=== PATIENT | male | born 1995 | race American Indian/Alaskan Native ===

== ENCOUNTER 2017-07-04 21:11 | Emergency (ER) | payer OTHER ==
[2017-07-04 22:29] VITALS: BP 122/66
[2017-07-04 23:26] LABS: Basophils # (Auto) 0.1 K/mm3 (0.0-0.1); Basophils % (Auto) 0.8 % (0.0-1.8); Eosinophils # (Auto) 0.3 K/mm3 (0.0-0.4); Eosinophils % (Auto) 3.7 % (0.0-4.3); Hematocrit 44.2 % (35.5-45.6); Lymphocytes # (Auto) 2.2 K/mm3 (1.2-5.4); Mean Corpuscular HGB Conc 34 % (32-34); Mean Corpuscular Hemoglobin 31 pg (28-32); Mean Corpuscular Volume 93 fl (84-94); Monocytes # (Auto) 0.6 K/mm3 (0.0-0.8); Monocytes % (Auto) 8.1 % (0.0-7.3); Platelet Count 252 K/mm3 (140-440); Red Blood Count 4.77 M/mm3 (3.65-5.03); Red Cell Distribution Width 14.1 % (13.2-15.2)
[2017-07-05 00:07] LABS: BUN/Creatinine Ratio 10; Blood Urea Nitrogen 12 mg/dL (9-20); Calcium 8.9 mg/dL (8.4-10.2); Hemolysis Index 21
[2017-07-05 02:14] LABS: Bilirubin,Urine NEG (Negative); Blood,Urine NEG (Negative); Color,Urine Yellow (Yellow); Mucus,Urine FEW /HPF; Protein,Urine <15 mg/dL mg/dL (Negative); Urobilinogen,Urine < 2.0 mg/dL (<2.0)
[2017-07-05 02:22] LABS: Amphetamine Screen,Urine PRESUMPTIVE NEGATIVE; Benzodiazepines Screen,Urine PRESUMPTIVE NEGATIVE; Methadone Screen,Urine PRESUMPTIVE NEGATIVE; Opiate Screen,Urine PRESUMPTIVE NEGATIVE
[2017-07-05 02:36] LABS: Cannabinoid Screen,Urine PRESUMPTIVE POSITIVE; Cocaine Screen,Urine PRESUMPTIVE POSITIVE
--- NOTE | 2017-07-05 03:34 | Emergency Department Report ---
ED Psych HPI - General Chief Complaint: Psych Stated Complaint: MEDICAL CLEARANCE Time Seen by Provider: 07/05/17 03:07 Source: patient Mode of arrival: Ambulatory - History of Present Illness Initial Comments: Patient was sent from [facility] for medical clearance for major depression. Patient has been having suicidal ideations without plan. He was complaining of a sore throat and occasional headache. Presently does not have any headache now MD Complaint: suicidal ideation, feels depressed -: Gradual Associated Psychiatric Symptoms: suicidal ideation, auditory hallucinations Improves With: none Worsens With: none Context: recent drug abuse - Related Data Allergies Allergy/AdvReac Type Severity Reaction Status Date / Time No Known Allergies Allergy Unverified 07/04/17 22:29 ED Review of Systems ROS: Stated complaint: MEDICAL CLEARANCE Other details as noted in HPI Comment: All other systems reviewed and negative ED Past Medical Hx - Past Medical History Hx Psychiatric Treatment: Yes (SI/HI,depression, OD'ed in 2012,major depression) Hx Asthma: Yes (bronchitis) Additional medical history: heart murmur - Social History Smoking Status: Current Every Day Smoker Substance Use Type: Alcohol, Cocaine, Heroin, Marijuana, Methamphetamines ED Physical Exam - General Limitations: No Limitations General appearance: alert, in no apparent distress - Head Head exam: Present: atraumatic, normocephalic - Eye Eye exam: Present: normal appearance - ENT ENT exam: Present: mucous membranes moist - Neck Neck exam: Present: normal inspection - Respiratory Respiratory exam: Present: normal lung sounds bilaterally. Absent: respiratory distress - Cardiovascular Cardiovascular Exam: Present: regular rate, normal rhythm. Absent: systolic murmur, diastolic murmur, rubs, gallop - GI/Abdominal GI/Abdominal exam: Present: soft, normal bowel sounds. Absent: tenderness - Rectal Rectal exam: Present: deferred - Extremities Exam Extremities exam: Present: normal inspection - Back Exam Back exam: Present: normal inspection - Neurological Exam Neurological exam: Present: alert, oriented X3 - Psychiatric Psychiatric exam: Present: normal affect, normal mood - Skin Skin exam: Present: warm, dry, intact, normal color. Absent: rash ED Course Vital Signs 07/04/17 07/05/17 22:20 01:15 Temperature 98.4 F Pulse Rate 55 L Respiratory 18 18 Rate Blood Pressure 122/66 O2 Sat by Pulse 99 99 Oximetry ED Medical Decision Making - Lab Data Result diagrams: 07/04/17 22:32 07/04/17 22:32 - Medical Decision Making Patient is medically cleared Critical care attestation.: If time is entered above; I have spent that time in minutes in the direct care of this critically ill patient, excluding procedure time. ED Disposition Clinical Impression: Medical clearance for psychiatric admission Disposition: DC/TX-65 PSY HOSP/PSY UNIT Is pt being admited?: No Does the pt Need Aspirin: No Condition: Stable Instructions: Depression (ED) Referrals: RENAN TOM MD [Primary Care Provider] - 3-5 Days Time of Disposition: 04:32 Print Language: KISWAHILI
== END 2017-07-05 08:33 ==
LOC: ED 21:11
DX: F32.9 Major depressive disorder, single episode, unspecified (principal); J02.9 Acute pharyngitis, unspecified; R51 Headache; J45.909 Unspecified asthma, uncomplicated; F17.200 Nicotine dependence, unspecified, uncomplicated; F14.10 Cocaine abuse, uncomplicated; F12.10 Cannabis abuse, uncomplicated; F15.10 Other stimulant abuse, uncomplicated; F11.10 Opioid abuse, uncomplicated; Z79.899 Other long term (current) drug therapy
CPT/HCPCS: 36415; 80048; 80307; 81001; 85025; 87116; 87430; 99285; G0480; 80320

== ENCOUNTER 2017-07-11 03:09 | Emergency (ER) | payer SELFPAY ==
[2017-07-11 04:55] LABS: Bilirubin,Urine NEG (Negative); Blood,Urine NEG (Negative); Color,Urine Yellow (Yellow); Mucus,Urine FEW /HPF; Protein,Urine <15 mg/dL mg/dL (Negative); Urobilinogen,Urine < 2.0 mg/dL (<2.0); WBC,Urine < 1.0 /HPF (0.0-6.0)
[2017-07-11 04:59] LABS: Basophils # (Auto) 0.1 K/mm3 (0.0-0.1); Eosinophils # (Auto) 0.1 K/mm3 (0.0-0.4); Hematocrit 42.3 % (35.5-45.6); Hemoglobin 14.8 gm/dl (11.8-15.2); Lymphocytes # (Auto) 2.2 K/mm3 (1.2-5.4); Mean Corpuscular HGB Conc 35 % (32-34); Mean Corpuscular Hemoglobin 32 pg (28-32); Mean Corpuscular Volume 92 fl (84-94); Monocytes # (Auto) 0.6 K/mm3 (0.0-0.8); Monocytes % (Auto) 5.4 % (0.0-7.3); Platelet Count 254 K/mm3 (140-440); Red Cell Distribution Width 14.5 % (13.2-15.2)
[2017-07-11 05:11] LABS: BUN/Creatinine Ratio 10; Blood Urea Nitrogen 9 mg/dL (9-20); Calcium 8.9 mg/dL (8.4-10.2); Hemolysis Index 33
[2017-07-11 05:16] LABS: Amphetamine Screen,Urine PRESUMPTIVE NEGATIVE; Benzodiazepines Screen,Urine PRESUMPTIVE NEGATIVE; Cannabinoid Screen,Urine PRESUMPTIVE NEGATIVE; Methadone Screen,Urine PRESUMPTIVE NEGATIVE; Opiate Screen,Urine PRESUMPTIVE NEGATIVE
[2017-07-11 05:29] LABS: Cocaine Screen,Urine PRESUMPTIVE POSITIVE
--- NOTE | 2017-07-11 12:00 | Emergency Department Report ---
ED Medical Clearance HPI - General Chief complaint: Psych Stated complaint: MEDICAL CLEARANCE Time Seen by Provider: 07/11/17 11:30 Source: patient Mode of arrival: Ambulatory - History of Present Illness Initial comments: 22-year-old male past medical history suicidal ideation, asthma, smoking presents with request for medical clearance. Patient states he missed his curfew at [facility] last night. Patient denies any fevers chills cough chest pain palpitations shortness of breath nausea vomiting. Denies suicidal or homicidal ideation. Is awake alert and oriented 3. Has no physical complaints. Is however requesting a refill on his albuterol inhaler. Patient states he does have a history of drug use for which she is being assisted at [facility]. he denies any other complaints. MD Complaint: medical clearance request Alledged Intoxication: No Compliant with Home Medications: No Treatments Prior to Arrival: none Home medications: Previous Rx's Medication Instructions Recorded Last Taken Type Albuterol Sulfate [Ventolin Hfa] 1 puff IH Q4H PRN #1 [email or web address] 07/11/17 Unknown Rx Allergies/Adverse reactions: Allergies Allergy/AdvReac Type Severity Reaction Status Date / Time No Known Allergies Allergy Unverified 07/04/17 22:29 ED Review of Systems ROS: Stated complaint: MEDICAL CLEARANCE Other details as noted in HPI Constitutional: denies: chills, fever Eyes: denies: eye pain, eye discharge, vision change ENT: denies: ear pain, throat pain Respiratory: denies: cough, shortness of breath, wheezing Cardiovascular: denies: chest pain, palpitations Endocrine: no symptoms reported Gastrointestinal: denies: abdominal pain, nausea, diarrhea Genitourinary: denies: urgency, dysuria Musculoskeletal: denies: back pain, joint swelling, arthralgia Skin: denies: rash, lesions Neurological: denies: headache, weakness, paresthesias Psychiatric: denies: anxiety, depression Hematological/Lymphatic: denies: easy bleeding, easy bruising ED Past Medical Hx - Past Medical History Hx Psychiatric Treatment: Yes (SI/HI,depression, OD'ed in 2012,major depression) Hx Asthma: Yes (bronchitis) Additional medical history: heart murmur - Surgical History Past Surgical History?: No - Social History Smoking Status: Current Every Day Smoker Substance Use Type: None - Medications Home Medications: Home Medications Medication Instructions Recorded Confirmed Last Taken Type Albuterol Sulfate [Ventolin Hfa] 1 puff IH Q4H PRN #1 [email or web address] 07/11/17 Unknown Rx ED Physical Exam - General Limitations: No Limitations General appearance: alert, in no apparent distress - Head Head exam: Present: atraumatic, normocephalic - Eye Eye exam: Present: normal appearance, PERRL, EOMI - ENT ENT exam: Present: mucous membranes moist - Neck Neck exam: Present: normal inspection - Respiratory Respiratory exam: Present: normal lung sounds bilaterally. Absent: respiratory distress - Cardiovascular Cardiovascular Exam: Present: regular rate, normal rhythm. Absent: systolic murmur, diastolic murmur, rubs, gallop - GI/Abdominal GI/Abdominal exam: Present: soft, normal bowel sounds - Rectal Rectal exam: Present: deferred - Extremities Exam Extremities exam: Present: normal inspection - Back Exam Back exam: Present: normal inspection - Neurological Exam Neurological exam: Present: alert, oriented X3 - Psychiatric Psychiatric exam: Present: normal affect, normal mood - Skin Skin exam: Present: warm, dry, intact, normal color. Absent: rash ED Course Vital Signs 07/11/17 04:15 Temperature 98.5 F Pulse Rate 67 Respiratory 16 Rate Blood Pressure 121/77 O2 Sat by Pulse 100 Oximetry ED Medical Decision Making - Lab Data Result diagrams: 07/11/17 04:45 07/11/17 04:45 - Medical Decision Making A/P: Medical clearance 1-patient has no overt medical problem at this time. Normal vital signs. Labs unremarkable 2-patient can return to his living facility today. States he is receiving therapy for substance abuse. 3-I verified with on-call behavioral health specialist Ms. Palomo that patients from this facility require medical clearance before returning if they missed their curfews. 4- albuterol refill ED Disposition Clinical Impression: Medication refill, Encounter for other administrative examinations Disposition: DC-01 TO HOME OR SELFCARE Is pt being admited?: No Does the pt Need Aspirin: No Condition: Stable Additional Instructions: Patient can return to his living facility today Prescriptions: Albuterol Sulfate [Ventolin Hfa] 1 puff IH Q4H PRN #1 [email or web address] PRN Reason: Wheezing Referrals: [facility] [Provider Group] - 3-5 Days Forms: Work/School Release Form(ED) Time of Disposition: 12:12
--- NOTE | 2017-07-11 12:11 | Emergency Department Report ---
Chief Complaint: Psych Stated Complaint: MEDICAL CLEARANCE Time Seen by Provider: 07/11/17 11:30 - HPI History of Present Illness: The patient's a 22-year-old male presents for evaluation of medical clearance. The patient states that he requires medical clearance for admission into [facility]. The patient denies fever, neck pain, chest pain, dyspnea, abdominal pain , back pain parasthesias, dyspnea, cough, hemoptysis, palpitations, dizziness, syncope, unilateral leg swelling, calf muscle pain, acute suicidal ideation or homicidal ideation, or acute hallucinations. - Exam Vital Signs: Vital Signs 07/11/17 04:15 Temperature 98.5 F Pulse Rate 67 Respiratory 16 Rate Blood Pressure 121/77 O2 Sat by Pulse 100 Oximetry MSE screening note: Focused history and physical exam performed. Due to findings the following was ordered: ED Medical Decision Making - Lab Data Result diagrams: 07/11/17 04:45 07/11/17 04:45 ED Disposition for MSE Condition: Stable Referrals: RENAN TOM MD [Primary Care Provider] - 3-5 Days
[2017-07-11 12:19] VITALS: BP 120/70
== END 2017-07-11 12:18 | disposition home or self-care (01) ==
LOC: ED 03:09
DX: Z02.89 Encounter for other administrative examinations (principal); F32.9 Major depressive disorder, single episode, unspecified; F17.200 Nicotine dependence, unspecified, uncomplicated; J45.909 Unspecified asthma, uncomplicated; Z79.899 Other long term (current) drug therapy
CPT/HCPCS: 36415; 80048; 80307; 81001; 85025; 99283; G0480; 80320

== ENCOUNTER 2017-07-21 09:08 | Emergency (ER) | payer SELFPAY ==
[2017-07-21 09:31] VITALS: BP 130/79
[2017-07-21 10:14] LABS: Basophils % (Auto) 0.5 % (0.0-1.8); Eosinophils % (Auto) 0.3 % (0.0-4.3); Hematocrit 41.4 % (35.5-45.6); Hemoglobin 14.6 gm/dl (11.8-15.2); Lymphocytes # (Auto) 1.3 K/mm3 (1.2-5.4); Lymphocytes % (Auto) 14.1 % (13.4-35.0); Mean Corpuscular HGB Conc 35 % (32-34); Mean Corpuscular Hemoglobin 32 pg (28-32); Mean Corpuscular Volume 92 fl (84-94); Monocytes % (Auto) 11.1 % (0.0-7.3); Platelet Count 211 K/mm3 (140-440)
[2017-07-21 10:33] LABS: BUN/Creatinine Ratio 10; Blood Urea Nitrogen 11 mg/dL (9-20); Calcium 9.5 mg/dL (8.4-10.2); Hemolysis Index 5
== END 2017-07-21 09:30 | disposition left against medical advice (07) ==
LOC: ED 09:08
DX: R10.9 Unspecified abdominal pain (principal); Z53.21 Procedure and treatment not carried out due to patient leaving prior to being seen by health care provider
CPT/HCPCS: 36415; 80048; 85025; G0480; 80320

== ENCOUNTER 2017-08-10 09:18 | Emergency (ER) | payer OTHER ==
[2017-08-10 10:05] VITALS: BP 119/65
[2017-08-10 11:40] LABS: Bilirubin,Urine NEG (Negative); Blood,Urine NEG (Negative); Color,Urine Straw (Yellow); Protein,Urine <15 mg/dL mg/dL (Negative); Urobilinogen,Urine < 2.0 mg/dL (<2.0)
[2017-08-10 11:46] LABS: Amphetamine Screen,Urine PRESUMPTIVE NEGATIVE; Benzodiazepines Screen,Urine PRESUMPTIVE NEGATIVE; Cannabinoid Screen,Urine PRESUMPTIVE NEGATIVE; Methadone Screen,Urine PRESUMPTIVE NEGATIVE; Opiate Screen,Urine PRESUMPTIVE NEGATIVE
[2017-08-10 11:49] LABS: RBC,Urine < 1.0 /HPF (0.0-6.0); WBC,Urine < 1.0 /HPF (0.0-6.0)
[2017-08-10 12:09] LABS: Basophils # (Auto) 0.1 K/mm3 (0.0-0.1); Basophils % (Auto) 0.7 % (0.0-1.8); Eosinophils # (Auto) 0.2 K/mm3 (0.0-0.4); Eosinophils % (Auto) 2.3 % (0.0-4.3); Lymphocytes # (Auto) 1.8 K/mm3 (1.2-5.4); Lymphocytes % (Auto) 20.2 % (13.4-35.0); Mean Corpuscular HGB Conc 36 % (32-34); Mean Corpuscular Hemoglobin 33 pg (28-32); Mean Corpuscular Volume 92 fl (84-94); Monocytes # (Auto) 0.4 K/mm3 (0.0-0.8); Platelet Count 249 K/mm3 (140-440); Red Blood Count 4.87 M/mm3 (3.65-5.03); Red Cell Distribution Width 13.7 % (13.2-15.2)
[2017-08-10 12:11] LABS: Cocaine Screen,Urine PRESUMPTIVE POSITIVE
[2017-08-10 12:13] LABS: Hematocrit 44.6 % (35.5-45.6); Hemoglobin 16.2 gm/dl (11.8-15.2)
[2017-08-10 12:40] LABS: BUN/Creatinine Ratio 9; Blood Urea Nitrogen 9 mg/dL (9-20); Hemolysis Index 93
== END 2017-08-10 22:55 | disposition left against medical advice (07) ==
LOC: ED 09:18
DX: Z01.818 Encounter for other preprocedural examination (principal); Z53.21 Procedure and treatment not carried out due to patient leaving prior to being seen by health care provider
CPT/HCPCS: 36415; 80048; 80307; 81001; 85025; G0480; 80320

== ENCOUNTER 2017-08-15 16:29 | Emergency (ER) | payer SELFPAY ==
[2017-08-15 18:45] LABS: Basophils # (Auto) 0.1 K/mm3 (0.0-0.1); Basophils % (Auto) 0.8 % (0.0-1.8); Eosinophils # (Auto) 0.2 K/mm3 (0.0-0.4); Eosinophils % (Auto) 2.5 % (0.0-4.3); Hemoglobin 14.3 gm/dl (11.8-15.2); Lymphocytes # (Auto) 1.4 K/mm3 (1.2-5.4); Lymphocytes % (Auto) 20.9 % (13.4-35.0); Mean Corpuscular HGB Conc 34 % (32-34); Mean Corpuscular Hemoglobin 31 pg (28-32); Mean Corpuscular Volume 92 fl (84-94); Monocytes # (Auto) 0.4 K/mm3 (0.0-0.8); Monocytes % (Auto) 6.7 % (0.0-7.3); Platelet Count 238 K/mm3 (140-440); Red Blood Count 4.56 M/mm3 (3.65-5.03); Red Cell Distribution Width 13.4 % (13.2-15.2)
[2017-08-15 19:05] LABS: BUN/Creatinine Ratio 10; Blood Urea Nitrogen 11 mg/dL (9-20); Calcium 9.3 mg/dL (8.4-10.2); Hemolysis Index 14
--- NOTE | 2017-08-15 20:18 | Emergency Department Report ---
ED Psych HPI - General Chief Complaint: Psych Stated Complaint: PSYCH EVAL Time Seen by Provider: 08/15/17 20:15 Source: patient Mode of arrival: Ambulatory - History of Present Illness Initial Comments: Patient with history of known psychiatric problems is here saying hearing voices and positive suicidal" I need some help question of compliance he does deny medical complaints no headache no stiff neck no fever no chest pain no abdominal pain he is here for further evaluation by psychiatry and will need medical clearance Complaint: feels depressed -: Gradual, days(s) Associated Psychiatric Symptoms: depression, suicidal ideation, racing thoughts , auditory hallucinations Quality: intermittent Context: recent alcohol abuse, recent drug abuse Associated Symptoms: denies other symptoms. denies: confusion, headache, shortness of breath, nausea, vomiting, syncope, insomnia Treatments Prior to Arrival: placed on mental he If Self Harm: admits thoughts of - Related Data Home Medications Medication Instructions Recorded Confirmed Last Taken Unobtainable 08/16/17 08/16/17 Unknown Allergies Allergy/AdvReac Type Severity Reaction Status Date / Time No Known Allergies Allergy Verified 08/15/17 16:33 ED Review of Systems ROS: Stated complaint: PSYCH EVAL Other details as noted in HPI Comment: Unobtainable due to pts medical conditions Constitutional: denies: diaphoresis, fever, malaise ENT: denies: dental pain, hearing loss, epistaxis Respiratory: denies: shortness of breath, SOB with exertion, SOB at rest, stridor Cardiovascular: denies: chest pain, palpitations, dyspnea on exertion, orthopnea , edema, syncope, paroxysmal nocturnal dyspnea Gastrointestinal: denies: abdominal pain, nausea, vomiting, diarrhea, constipation, hematemesis, melena, hematochezia Neurological: denies: headache, weakness, numbness, paresthesias, confusion, abnormal gait, vertigo ED Past Medical Hx - Past Medical History Hx Psychiatric Treatment: Yes (SI/HI,depression, OD'ed in 2012,major depression) Hx Asthma: Yes (bronchitis) Additional medical history: heart murmur - Social History Smoking Status: Current Every Day Smoker Substance Use Type: Cocaine - Medications Home Medications: Home Medications Medication Instructions Recorded Confirmed Last Taken Type Unobtainable 08/16/17 08/16/17 Unknown History ED Physical Exam - General Limitations: No Limitations General appearance: alert, anxious - Head Head exam: Present: atraumatic, normocephalic - Eye Eye exam: Present: PERRL, EOMI - ENT ENT exam: Present: normal exam, normal orophraynx - Neck Neck exam: Present: normal inspection. Absent: tenderness, meningismus - Respiratory Respiratory exam: Present: normal lung sounds bilaterally. Absent: respiratory distress, wheezes, rales, rhonchi, stridor, chest wall tenderness, accessory muscle use, decreased breath sounds, prolonged expiratory - Cardiovascular Cardiovascular Exam: Present: regular rate, normal rhythm, normal heart sounds. Absent: rubs, gallop - GI/Abdominal GI/Abdominal exam: Present: soft. Absent: distended, tenderness, guarding, rebound, rigid, mass, pulsatile mass - Extremities Exam Extremities exam: Present: normal capillary refill. Absent: pedal edema, joint swelling, calf tenderness - Back Exam Back exam: Present: normal inspection. Absent: CVA tenderness (R), CVA tenderness (L), muscle spasm, paraspinal tenderness, vertebral tenderness - Neurological Exam Neurological exam: Present: alert, oriented X3, CN II-XII intact. Absent: motor sensory deficit ED Course Vital Signs 08/15/17 08/15/17 08/15/17 16:33 20:20 20:30 Temperature 98.7 F 98.7 F Pulse Rate 79 95 H Respiratory 16 20 20 Rate Blood Pressure 148/85 Blood Pressure 139/82 [Right] O2 Sat by Pulse 98 98 97 Oximetry 08/16/17 00:33 Temperature 97.7 F Pulse Rate 62 Respiratory 18 Rate Blood Pressure Blood Pressure 101/60 [Right] O2 Sat by Pulse 97 Oximetry ED Medical Decision Making - Lab Data Result diagrams: 08/15/17 18:36 08/15/17 18:36 - EKG Data EKG shows normal: sinus rhythm Rate: normal - EKG Data Interpretation: other (no acute ischemic change normal QTC) - Medical Decision Making Medically cleared for psych evaluation for worsening psychosis and suicidal ideation he did speak, somewhat combative and to prevent danger to self and others he was given chemical restraint. Repeat vital signs were stable he is awaiting psych evaluation and placement Critical care attestation.: If time is entered above; I have spent that time in minutes in the direct care of this critically ill patient, excluding procedure time. ED Disposition Clinical Impression: Suicidal ideation, Psychosis, Polysubstance abuse Disposition: DC/TX-[id number] PSY HOSP/PSY UNIT Is pt being admited?: No Condition: Stable Referrals: PRIMARY CARE, [Primary Care Provider] - 3-5 Days Time of Disposition: 03:47
[2017-08-15] MEDS ORDERED: HALDOL IM ONE (20:20)
[2017-08-15] MEDS ORDERED: ATIVAN IM ONE (20:20)
[2017-08-15] MEDS ORDERED: BENADRYL IM ONE (20:20)
[2017-08-16 00:09] LABS: Bilirubin,Urine NEG (Negative); Blood,Urine MOD (Negative); Color,Urine Yellow (Yellow); Mucus,Urine 1+ /HPF; Protein,Urine <15 mg/dL mg/dL (Negative)
[2017-08-16 00:16] LABS: Benzodiazepines Screen,Urine PRESUMPTIVE NEGATIVE; Methadone Screen,Urine PRESUMPTIVE NEGATIVE; Opiate Screen,Urine PRESUMPTIVE NEGATIVE
[2017-08-16 00:31] LABS: Amphetamine Screen,Urine PRESUMPTIVE POSITIVE; Cannabinoid Screen,Urine PRESUMPTIVE POSITIVE; Cocaine Screen,Urine PRESUMPTIVE POSITIVE
--- NOTE | 2017-08-16 11:08 | Consultation ---
History of Present Illness - Reason for Consult Consult date: 08/16/17 Reason for consult: Mental Health Requesting physician: SUNDAR CRAIG - Chief Complaint Chief complaint: "I need help" - History of Present Psychiatric Illness 22 y.o. male presenting to the ER for SI's and hearing voices. Today the patient is calm during the assessment. He stated that he want to stop using drugs and get his life together. He stated that he use recreational drugs to self medicate because he struggles with depression. He stated that his depression is brought on because his family does not want him around. He was asked to elaborate more about his relationship with his family, he stated, 'I don't want to talk about them." He stated his recreational drug use has gotten worse the past several months. He would not confirm of deny SI's when asked. He rate his depression 7/10, with 10 being the worse. He acknowledged erratic sleep and a poor appetite. He stated that he hear voices when he is "high on drugs." He denies any manic episodes. He denies alcohol consumption (etoh). Medications and Allergies Allergies Allergy/AdvReac Type Severity Reaction Status Date / Time No Known Allergies Allergy Verified 08/15/17 16:33 Home Medications Medication Instructions Recorded Confirmed Last Taken Type Unobtainable 08/16/17 08/16/17 Unknown History Past psychiatric history - Past Medical History Past Medical History: other (Heart murmur, Bronchitis) Past Surgical History: No surgical history - past Psychiatric treatment and history psychiatric treatment history: Multiple inpatient psy services. Denies a fam psy hx. - Social History Social history: other (Homeless) Mental Status Exam - Vital signs Last Vital Signs Temp 97.9 F 08/16/17 08:27 Pulse 58 L 08/16/17 08:27 Resp 18 08/16/17 08:27 BP 98/46 08/16/17 08:27 Pulse Ox 98 08/16/17 08:27 - Exam Narrative exam: MSE: Appearance: calm, cooperative Behavior: regular eye contact Speech: regular rate and tone Mood: "depressed" Affect: congruent to mood Thought Process: circumstantial Thought Content: denies HI's and AVH's, would not confirm or deny SI's Motor Activity: lying in bed Cognition: A/O x 3 Insight: variable Judgment: variable Results Result Diagrams: 08/15/17 18:36 08/15/17 18:36 Abnormal lab results 08/15/17 08/15/17 08/15/17 Range/Units 18:36 18:36 18:36 Glucose 113 H (75-100) mg/dL Salicylates < 0.3 L (2.8-20.0) mg/dL Acetaminophen < 5.0 L (10.0-30.0) ug/mL All other labs normal. Assessment and Plan Assessment and plan: Impression: MDD, Severe Type. Substance Use DO (cocaine). Cannabis Use DO. Today the patient is calm during the assessment. DDx: R/O Bipolar DO, R/O Substance Induced Mood DO Recommendation/Plan: Continue 1013 with placement to inpatient psy services. Start Remeron 15 mg PO HS for depression. Discusses possible suicidality/ medication induced jay with patient reference Remeron. Discussed the importance to abstain from recreational drug use.
[2017-08-16] MEDS: REMERON PO SCH (23:09)
--- NOTE | 2017-08-17 15:06 | Progress Note ---
Subjective - Reason for Consult Consult date: 08/17/17 Reason for consult: Psychiatry Follow-up - Chief Complaint Chief complaint: "I want as much as possible" 22 y.o. male presenting to the ER for SI's and hearing voices. Today the patient is calm and cooperative during the assessment. He stated that he needs lots of help to stay off "drugs." He stated that recreational drug use is his biggest issue. He stated that his recreational drug use has put him in a "depressed state of mind." He denies being suicidal, but have suicidal thoughts. He denies HI's and AVH's. He denies any side effects of his medication. He stated getting sleep last night. Mental Status Exam - Vital signs Last Vital Signs Temp 98.6 F 08/17/17 13:57 Pulse 72 08/17/17 13:57 Resp 20 08/17/17 14:59 BP 117/83 08/17/17 13:57 Pulse Ox 100 08/17/17 14:59 - Exam Narrative exam: MSE: Appearance: calm, cooperative Behavior: regular eye contact Speech: regular rate and tone Mood: "depressed" Affect: congruent to mood Thought Process: circumstantial Thought Content: denies SI/HI's and AVH's Motor Activity: lying in bed Cognition: A/O x 3 Insight: variable Judgment: variable Assessment and Plan Impression: MDD, Severe Type. Substance Use DO (cocaine). Cannabis Use DO. Today the patient is calm and cooperative during the assessment. DDx: R/O Bipolar DO, R/O Substance Induced Mood DO Recommendation/Plan: Continue 1013 with placement to inpatient psy services. Continue Remeron 15 mg PO HS for depression. Discusses possible suicidality/ medication induced jay with patient reference Remeron. Discussed the importance to abstain from recreational drug use.
[2017-08-17] MEDS: REMERON PO SCH (22:25)
--- NOTE | 2017-08-18 15:00 | Progress Note ---
Subjective - Reason for Consult Consult date: 08/18/17 Reason for consult: Psychiatric Follow-up Evaluation - Chief Complaint Chief complaint: "I want as much as possible" 22 y.o. male presenting to the ER for SI's and hearing voices. Today the patient is calm and cooperative during the assessment. He stated that he needs lots of help to stay off "drugs." He stated that recreational drug use is his biggest issue. He stated that his recreational drug use has put him in a "depressed state of mind." He denies being suicidal, but have suicidal thoughts. He denies HI's and AVH's. He denies any side effects of his medication. He stated getting sleep last night. Mental Status Exam - Vital signs Last Vital Signs Temp 98.4 F 08/18/17 09:00 Pulse 54 L 08/18/17 09:00 Resp 18 08/18/17 09:00 BP 110/70 08/18/17 09:00 Pulse Ox 96 08/18/17 09:00
[2017-08-18] MEDS: REMERON PO SCH (21:41)
--- NOTE | 2017-08-19 10:41 | Progress Note ---
Subjective - Reason for Consult Consult date: 08/19/17 Reason for consult: Psychiatry Follow-up - Chief Complaint Chief complaint: "I don't know what to do" 22 y.o. male presenting to the ER for SI's and hearing voices. Today the patient is cooperative during the assessment. He stated that his recreational drug use is a "major concern" for him. He stated that he must be serious about rehab services when discharged. He denies SI/HI's and AVH's. He denies any side effects of his medication. Mental Status Exam - Vital signs Last Vital Signs Temp 98.1 F 08/18/17 21:00 Pulse 56 L 08/18/17 21:00 Resp 18 08/18/17 09:00 BP 111/61 08/18/17 21:00 Pulse Ox 96 08/18/17 21:00 - Exam Narrative exam: MSE: Appearance: cooperative Behavior: regular eye contact Speech: regular rate and tone Mood: withdrawn Affect: congruent to mood Thought Process: circumstantial Thought Content: denies SI/HI's and AVH's Motor Activity: lying in bed Cognition: A/O x 3 Insight: variable Judgment: variable Assessment and Plan Impression: MDD, Severe Type. Substance Use DO (cocaine). Cannabis Use DO. Today the patient is cooperative during the assessment. DDx: R/O Bipolar DO, R/O Substance Induced Mood DO Recommendation/Plan: Continue 1013 with placement to inpatient psy services. Continue Remeron 15 mg PO HS for depression. Discusses possible suicidality/ medication induced jay with patient reference Remeron. Discussed the importance to abstain from recreational drug use.
[2017-08-19] MEDS: REMERON PO SCH (22:16)
[2017-08-20 10:13] VITALS: BP 116/62
--- NOTE | 2017-08-20 11:52 | Progress Note ---
Subjective - Reason for Consult Consult date: 08/20/17 Reason for consult: Psychiatry Follow-up - Chief Complaint Chief complaint: "I need inpatient help" 22 y.o. male presenting to the ER for SI's and hearing voices. Today the patient is cooperative during the assessment. He stated that he prefer inpatient psy services. He was informed that he will be transferred today, he stated, "good." He denies SI/HI's and AVH's. He denies any side effects of his medication. Mental Status Exam - Vital signs Last Vital Signs Temp 98.1 F 08/20/17 10:00 Pulse 69 08/20/17 10:00 Resp 18 08/20/17 10:00 BP 116/62 08/20/17 10:00 Pulse Ox 99 08/20/17 10:00 - Exam Narrative exam: MSE: Appearance: calm, cooperative Behavior: regular eye contact Speech: regular rate and tone Mood: withdrawn Affect: congruent to mood Thought Process: circumstantial Thought Content: denies SI/HI's and AVH's Motor Activity: lying in bed Cognition: A/O x 3 Insight: variable Judgment: variable Assessment and Plan Impression: MDD, Severe Type. Substance Use DO (cocaine). Cannabis Use DO. Today the patient is calm and cooperative during the assessment. DDx: R/O Bipolar DO, R/O Substance Induced Mood DO Recommendation/Plan: Continue 1013 with placement to [facility] today. Continue Remeron 15 mg PO HS for depression. Discusses possible suicidality/ medication induced jay with patient reference Remeron. Discussed the importance to abstain from recreational drug use.
== END 2017-08-20 13:42 ==
LOC: EEVIPCON 16:29 → ED 16:29
DX: F29 Unspecified psychosis not due to a substance or known physiological condition (principal); F19.10 Other psychoactive substance abuse, uncomplicated; R45.851 Suicidal ideations; J45.909 Unspecified asthma, uncomplicated; F17.200 Nicotine dependence, unspecified, uncomplicated
CPT/HCPCS: 36415; 80048; 80307; 81001; 85025; 93005; 93010; 96372; 99285; G0480; J1630; 80320